=== PATIENT | male | born 1975 | race Caucasian/White ===

== ENCOUNTER 2017-04-30 19:42 | Emergency (ER) | payer BC ==
[~2017-04-30] VITALS: Ht 185.4 cm; Wt 117.9 kg
[2017-04-30 20:25] VITALS: BP 152/77
== END 2017-04-30 21:00 | disposition left against medical advice (07) ==
LOC: ER 19:42
DX: M54.6 Pain in thoracic spine (principal); Z53.21 Procedure and treatment not carried out due to patient leaving prior to being seen by health care provider